=== PATIENT | female | born 1995 ===

== ENCOUNTER 2018-01-07 15:21 | Emergency (ER) | payer SELFPAY ==
[2018-01-07 16:03] VITALS: BP 101/61
--- NOTE | 2018-01-07 16:24 | ED ---
Throat Pain/Nasal Congestion - HPI Summary HPI Summary: 22 yr old with one month of eyelid irritation, at times minor swelling. Initially some sand men in eyes in morning, but no drainage or discharge now. Her eyes are itchy at times. She had no eye pain. No FB sensation. She wears contacts. She notices the skin appears dry and irritated lower lids. This is her 4th year in [place] and first year of symptoms. She does use makeup. - History of Current Complaint Chief Complaint: UCGeneralIllness Time Seen by Provider: 01/07/18 16:06 - Allergies/Home Medications Allergies/Adverse Reactions: Allergies Allergy/AdvReac Type Severity Reaction Status Date / Time No Known Allergies Allergy Verified 01/07/18 16:03 Home Medications: Home Medications NK [No Home Medications Reported] 01/07/18 [History Confirmed 01/07/18] PMH/Surg Hx/FS Hx/Imm Hx Infectious Disease History: No Infectious Disease History: Denies: Traveled Outside the in Last 30 Days - Family History Known Family History: Positive: None - Social History Occupation: Student Alcohol Use: Weekly Alcohol Amount: weekends Substance Use Type: Reports: Marijuana Substance Use Comment - Amount & Last Used: rare Smoking Status (MU): Never Smoked Tobacco Review of Systems Constitutional: Negative Positive: Erythema - mild. Negative: Photophobia, Blurred Vision, Diplopia, Drainage ENT: Negative Respiratory: Negative All Other Systems Reviewed And Are Negative: Yes Physical Exam Triage Information Reviewed: Yes Vital Signs On Initial Exam: Initial Vitals Temp Pulse Resp BP Pulse Ox 98.2 F 84 16 101/61 100 01/07/18 15:58 01/07/18 15:58 01/07/18 15:58 01/07/18 15:58 01/07/18 15:58 Vital Signs Reviewed: Yes Appearance: Positive: Well-Appearing, No Pain Distress Skin: Positive: Warm, Skin Color Reflects Adequate Perfusion Eyes: Positive: EOMI, KYUNG, Conjunctiva Inflammed - very mild redness. No discharge., Other: - lower eyelids with mild lichen appearance dermatitis like skin. ENT: Positive: Normal ENT inspection Neck: Positive: Nontender Respiratory/Lung Sounds: Positive: Clear to Auscultation, Breath Sounds Present Cardiovascular: Positive: Normal Musculoskeletal: Positive: Strength/ROM Intact Neurological: Positive: Sensory/Motor Intact, Alert, Oriented to Person Place, Time, CN Intact II-III - Julio Cesar Coma Scale Best Eye Response: 4 - Spontaneous Best Motor Response: 6 - Obeys Commands Best Verbal Response: 5 - Oriented Coma Scale Total: 15 Diagnostics - Vital Signs Vital Signs Temp Pulse Resp BP Pulse Ox 01/07/18 15:58 98.2 F 84 16 101/61 100 - Laboratory Lab Statement: Any lab studies that have been ordered have been reviewed, and results considered in the medical decision making process. EENT Course/Dx - Course Course Of Treatment: 22 yr old with mild conjunctivitis and what appears to be mild eyelid dermatitis. Recommend no make up. Wear her eye glasses, and no contact lenses. Referred to Opthomology for follow up and further recommendations. - Diagnoses Provider Diagnoses: Conjunctivitis, allergic Discharge - Sign-Out/Discharge Documenting (check all that apply): Patient Departure All imaging exams completed and their final reports reviewed: No Studies - Discharge Plan Condition: Good Disposition: HOME Patient Education Materials: Dermatitis (ED), Conjunctivitis (ED) Referrals: No Primary Care Phys,NOPCP [Primary Care Provider] - Nu Mc MD [Medical Doctor] - 2 Days - Billing Disposition and Condition Condition: GOOD Disposition: Home
== END 2018-01-07 16:33 | disposition home or self-care (01) ==
LOC: UCCORT 15:21
DX: H10.13 Acute atopic conjunctivitis, bilateral (principal); F12.90 Cannabis use, unspecified, uncomplicated
CPT/HCPCS: 99201; G0463